=== PATIENT | female | born 1945 | race African-American/Black ===

== ENCOUNTER 2016-12-10 07:29 | Outpatient (CLI) | payer MEDICARE, OTHER ==
[2016-12-10 07:49] LABS: Bilirubin Negative (Negative); Blood, Urine Small (Negative); Clarity Clear (Clear); Glucose, Urine (Dipstick) Negative (Negative); Leukocyte Negative (Negative); Nitrite Negative (Negative); Protein, Urine (Dipstick) Negative (Neg-Trace); Specific Gravity, Urine 1.025 (1.005-1.030); Urobilinogen 0.2 mg/dL (0.2-1.0)
[2016-12-10 08:23] LABS: Hemoglobin A1c 5.6 % (4.0-6.0)
[2016-12-10 08:24] LABS: ALT (SGPT) 15 U/L (0-55); AST (SGOT) 17 U/L (5-34); Albumin 3.8 g/dL (3.4-4.8); Alkaline Phosphatase 65 U/L (40-150); Anion Gap 15 mmol/L (10-20); BUN (Urea Nitrogen) 16 mg/dL (9.8-20.1); Bilirubin, Total 0.3 mg/dL (0.2-1.2); Calc. Creatinine Clearance 0 mL/min (70-130); Calcium 9.4 mg/dL (7.8-10.44); Carbon Dioxide 23 mmol/L (23-31); Cardiac Risk 4.4 (Less than 4.5); Chloride 107 mmol/L (98-107); Cholesterol 186 mg/dL (< 200 Desired); Estimated GFR-MDRD 80; Globulin 3.4 g/dL (2.4-3.5); Glucose 102 mg/dL (83-110); HDL Cholesterol 42 mg/dL (>60 Neg Risk); LDL Cholesterol, Calculated 128 mg/dL; Potassium 3.7 mmol/L (3.5-5.1); Protein, Total 7.2 g/dL (5.8-8.1); Sodium 141 mmol/L (136-145); Triglycerides 81 mg/dL (Less than 150)
[2016-12-10 11:12] LABS: Thyroid Stimulating Hormone 0.6739 uIU/mL (0.35-4.94)
[2016-12-10 19:19] LABS: Creatinine, Urine 184.42 mg/dL (47-110); Microalbumin Urine 1.8 mg/dL (0.5-50.0); Microalbumin/Creat Ratio 9.8 mg/g (Less than 30)
== END 2016-12-10 07:30 | disposition home or self-care (01) ==
LOC: MADLAB 07:29
PROVIDERS: ATTEND Family Medicine
DX: I10 Essential (primary) hypertension (principal); E78.5 Hyperlipidemia, unspecified; E55.9 Vitamin D deficiency, unspecified; R73.02 Impaired glucose tolerance (oral)
CPT/HCPCS: 36415; 80053; 80061; 81003; 82043; 82306; 83036; 84443

== ENCOUNTER 2017-04-02 08:04 | Outpatient (CLI) | payer MEDICARE, OTHER ==
[2017-04-02 08:59] LABS: Hemoglobin A1c 5.7 % (4.0-6.0)
[2017-04-02 09:14] LABS: ALT (SGPT) 18 U/L (8-55); AST (SGOT) 18 U/L (5-34); Albumin 3.9 g/dL (3.4-4.8); Alkaline Phosphatase 66 U/L (40-150); Anion Gap 14 mmol/L (10-20); BUN (Urea Nitrogen) 21 mg/dL (9.8-20.1); Bilirubin, Total 0.4 mg/dL (0.2-1.2); Calc. Creatinine Clearance 0 mL/min (70-130); Calcium 9.8 mg/dL (7.8-10.44); Carbon Dioxide 25 mmol/L (23-31); Cardiac Risk 4.2 (Less than 4.5); Chloride 104 mmol/L (98-107); Cholesterol 184 mg/dl (< 200 Desired); Estimated GFR-MDRD 72; Globulin 4.2 g/dL (2.4-3.5); Glucose 92 mg/dL (83-110); HDL Cholesterol 44 mg/dL (>60 Neg Risk); LDL Cholesterol, Calculated 120 mg/dL; Potassium 3.6 mmol/L (3.5-5.1); Protein, Total 8.1 g/dL (6.0-8.3); Sodium 139 mmol/L (136-145); Triglycerides 99 mg/dL (Less than 150)
[2017-04-02 11:08] LABS: Clarity Clear (Clear); Glucose, Urine (Dipstick) Negative (Negative); Leukocyte Trace (Negative); Nitrite Negative (Negative); Protein, Urine (Dipstick) Negative (Neg-Trace)
[2017-04-02 11:09] LABS: Bilirubin Negative (Negative); Blood, Urine Negative (Negative); Urobilinogen 0.2 mg/dL (0.2-1.0)
== END 2017-04-02 08:05 | disposition home or self-care (01) ==
LOC: MADLAB 08:04
PROVIDERS: ATTEND Family Medicine
DX: R73.02 Impaired glucose tolerance (oral) (principal); E55.9 Vitamin D deficiency, unspecified; E78.5 Hyperlipidemia, unspecified; I10 Essential (primary) hypertension
CPT/HCPCS: 36415; 80053; 80061; 81003; 82306; 83036

== ENCOUNTER 2017-11-30 13:52 | Outpatient (CLI) | payer MEDICARE, BC | END 2017-11-30 13:53 | disposition home or self-care (01) | LOC: MADLAB 13:52 | PROVIDERS: ATTEND Family Medicine | DX: Z12.11 Encounter for screening for malignant neoplasm of colon (principal); E78.5 Hyperlipidemia, unspecified; E55.9 Vitamin D deficiency, unspecified; I10 Essential (primary) hypertension; R73.02 Impaired glucose tolerance (oral) | CPT/HCPCS: 82274 ==

== ENCOUNTER 2020-03-06 16:16 | Outpatient (CLI) | payer MEDICARE ==
--- NOTE | 2020-03-06 16:32 | RAD ---
Right foot 3 views HISTORY: Foot injury. FINDINGS: Lisfranc joint alignment is anatomic. Plantar arch is maintained. Small plantar enthesophyt e at the inferior aspect of the calcaneus. No acute fracture, dislocation, or aggressive osseous erosions. Scattered mild osteophytosis of the mid foot. IMPRESSION : Mild osteoarthritic changes. No acute osseous abnormalities are demonstrated. Small plantar heel spur.
== END 2020-03-06 16:17 | disposition home or self-care (01) ==
LOC: MADRAD 16:16
PROVIDERS: ATTEND Family Medicine
DX: M79.671 Pain in right foot (principal); M19.071 Primary osteoarthritis, right ankle and foot; M77.31 Calcaneal spur, right foot

== ENCOUNTER 2021-07-24 16:35 | Outpatient (CLI) | payer MEDICARE, BC | END 2021-07-24 16:36 | disposition home or self-care (01) | LOC: MADLAB 16:35 | PROVIDERS: ATTEND Family Medicine | DX: J20.9 Acute bronchitis, unspecified (principal) | CPT/HCPCS: 71046 ==